=== PATIENT | female | born 1935 | race Caucasian/White ===

== ENCOUNTER 2020-12-23 11:00 | Outpatient (RCR) | payer MEDICARE, SELFPAY ==
--- NOTE | 2020-11-11 11:58 | ECG_ITS ---
Measurements Intervals [place] Rate: 65 P: HI: 0 QRS: 88 QRSD: 202 T: -6 QT: 505 QTc: 528 Interpretive Statements ATRIAL FLUTTER/TACHYCARDIA FREQUENT VENTRICULAR PREMATURE COMPLEXES RIGHT BUNDLE BRANCH BLOCK BASELINE ARTIFACT- II, III, AVR, AVL, AVF, V4 ABNORMAL ECG Electronically Signed On 11-11-2020 15:50:19 CDT by Tavares Quintanilla D.O.
== END 2020-12-23 15:20 | disposition home or self-care (01) ==
PROVIDERS: PCP Internal Medicine
DX: J45.909 Unspecified asthma, uncomplicated (principal)
CPT/HCPCS: 93005; 97150; G0239; G0424

== ENCOUNTER 2021-01-18 10:55 | Outpatient (RCR) | payer MEDICARE, SELFPAY ==
--- NOTE | 2021-01-20 18:48 | PTOPEVAL ---
Thank you for referring Lisa Javier to [facility].? The patient is scheduled to be seen for therapy? ____x/week for ___ weeks. Please review, sign, date and return this plan of care BINH. I agree with and certify that the following plan of care is medically necessary. Referring Physician Date Admitting Provider: Attending Provider: Osbaldo Alvarez, Referring Provider: *PT Outpatient Evaluation Start: 01/18/21 11:04 Freq: Status: Active Protocol: Document 01/18/21 11:09 [facility] (Rec: 01/18/21 12:15 [facility] [id number]) Therapy Assessment Status Assessment Status Assessment Status Evaluation Evaluation Information Problem Diagnosis lumbar spine OA Onset 11/26/20 Additional Evaluation Detail oswestry = 44% Subjective Information patient reports she is having Query Text:As Reported By Patient/ lower back pain between her Family two SI joints. she reports she has been having pain for a long long time. she reports she has had pain for more than 10 years. she reports the pain comes and goes. she reports she has increased pain with standing, and lifting/ pushing heavy objects. she reports she supplements with tylenol as needed for pain. she reports she has had no xrays. she reports her typical daily activities involve self care, reading, watching TV, and taking care of her pets. she reports she was just recently in cardiac rehab for fungus in her lungs. Prior Level of Function Comments Additional Prior Level of Function she reports she has noticed Comments decreased performance with home care activities and community activities for 4-5 years. she reports it has been progressively worsening for the past year. Pain Assessment Timing of Pain Assessment Timing of Pain Assessment Assessment Pain Scale Pain Scale Used Numeric (1 - 10) Self Report Pain Assessment Lower Back Reported Pain Level 6 Greatest Pain Intensity 8 Pain Score Pain Score 6: Self Report Interventions Used Interventions Used By Clinicians Activity or ADL's,Education,
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
--- NOTE | 2021-03-22 16:06 | PTOPEVAL ---
Thank you for referring Lisa Javier to [facility].? The patient is scheduled to be seen for therapy? ____x/week for ___ weeks. Please review, sign, date and return this plan of care BINH. I agree with and certify that the following plan of care is medically necessary. Referring Physician Date Admitting Provider: Attending Provider: Osbaldo Alvarez, Referring Provider: *PT Outpatient Evaluation Start: 01/18/21 11:04 Freq: Status: Active Protocol: Document 03/22/21 15:19 [facility] (Rec: 03/22/21 16:05 [facility] [id number]) Therapy Assessment Status Assessment Status Assessment Status Progress Outpatient Past Medical History Cardiovascular History Hx Atrial Fibrillation Yes Hx Hypercholesterolemia Yes Hx Mitral Valve Prolapse Yes Hx Other Cardiac Disorders Yes: WATCHMAN IMPLANT Respiratory History Hx Asthma Yes Gastrointestinal History Hx Appendectomy Yes Hx Colitis Yes Hx Diverticulitis Yes Hx Gastrointestinal Bleed Yes Hx Irritable Bowel Yes Hx Ulcer Yes Genitourinary History Hx Urinary Tract Infection Yes Musculoskeletal History Hx Arthritis Yes Hx Back Pain Yes Hx Fractures Yes: RIGHT FOOT Hematological History Hx Anemia Yes Hx Blood Transfusions Yes HEENT History Hx Tonsillectomy Yes Hx Sinus Problems Yes Hx Other HEENT Disorders Yes: ALLERGIES Other History Hx Cancer Yes: RIGHT BREAST-MASTECTOMY Evaluation Information Problem Diagnosis lumbar spine OA Onset 11/26/20 Pain Assessment Timing of Pain Assessment Timing of Pain Assessment Assessment Pain Scale Pain Scale Used Numeric (1 - 10) Self Report Pain Assessment Chest Reported Pain Level 0 Upper Back Reported Pain Level 3 Lower Back Reported Pain Level 3 Pain Score Pain Score 0,3,3: Self Report Interventions Used Interventions Used By Clinicians Activity or ADL's,Electrical Stimulation,Exercise,Heat, Manual Therapy Techniques Cervical and Lumbar ROM Lumbar ROM Lumbar Flexion Active Ankle,Floor Query Text:Hands to: Lumbar Extension (0-40) 20 Query Text:Active in Degrees Lumbar Lateral Flexion Right (0-40) 30 Query Text:Active in Degrees Lumbar Lateral Flexion Left (0-40) 30 Query Text:Active in Degrees Cervical and Lumbar Muscle Testing Lumbar Strength Upper Abdominal Strength 3+Fair+ Lower Abdominal Strengt
--- NOTE | 2021-03-22 16:10 | PTOPEVAL ---
Thank you for referring Lisa Javier to [facility].? The patient is scheduled to be seen for therapy? ____x/week for ___ weeks. Please review, sign, date and return this plan of care BINH. I agree with and certify that the following plan of care is medically necessary. Referring Physician Date Admitting Provider: Attending Provider: Osbaldo Alvarez, Referring Provider: *PT Outpatient Evaluation Start: 01/18/21 11:04 Freq: Status: Active Protocol: Document 03/22/21 15:19 [facility] (Rec: 03/22/21 16:05 [facility] [id number]) Therapy Assessment Status Assessment Status Assessment Status Progress Outpatient Past Medical History Cardiovascular History Hx Atrial Fibrillation Yes Hx Hypercholesterolemia Yes Hx Mitral Valve Prolapse Yes Hx Other Cardiac Disorders Yes: WATCHMAN IMPLANT Respiratory History Hx Asthma Yes Gastrointestinal History Hx Appendectomy Yes Hx Colitis Yes Hx Diverticulitis Yes Hx Gastrointestinal Bleed Yes Hx Irritable Bowel Yes Hx Ulcer Yes Genitourinary History Hx Urinary Tract Infection Yes Musculoskeletal History Hx Arthritis Yes Hx Back Pain Yes Hx Fractures Yes: RIGHT FOOT Hematological History Hx Anemia Yes Hx Blood Transfusions Yes HEENT History Hx Tonsillectomy Yes Hx Sinus Problems Yes Hx Other HEENT Disorders Yes: ALLERGIES Other History Hx Cancer Yes: RIGHT BREAST-MASTECTOMY Evaluation Information Problem Diagnosis lumbar spine OA Onset 11/26/20 Pain Assessment Timing of Pain Assessment Timing of Pain Assessment Assessment Pain Scale Pain Scale Used Numeric (1 - 10) Self Report Pain Assessment Chest Reported Pain Level 0 Upper Back Reported Pain Level 0 Lower Back Reported Pain Level 3 Pain Score Pain Score 0,0,3: Self Report Interventions Used Interventions Used By Clinicians Activity or ADL's,Electrical Stimulation,Exercise,Heat, Manual Therapy Techniques Cervical and Lumbar ROM Lumbar ROM Lumbar Flexion Active Ankle,Floor Query Text:Hands to: Lumbar Extension (0-40) 20 Query Text:Active in Degrees Lumbar Lateral Flexion Right (0-40) 30 Query Text:Active in Degrees Lumbar Lateral Flexion Left (0-40) 30 Query Text:Active in Degrees Cervical and Lumbar Muscle Testing Lumbar Strength Upper Abdominal Strength 3+Fair+ Lower Abdominal Strengt
--- NOTE | 2021-04-05 16:14 | PTOPEVAL ---
Thank you for referring Lisa Javier to [facility].? The patient is scheduled to be seen for therapy? ____x/week for ___ weeks. Please review, sign, date and return this plan of care BINH. I agree with and certify that the following plan of care is medically necessary. Referring Physician Date Admitting Provider: Attending Provider: Osbaldo Alvarez, Referring Provider: *PT Outpatient Evaluation Start: 01/18/21 11:04 Freq: Status: Active Protocol: Document 04/05/21 14:55 [facility] (Rec: 04/05/21 16:11 [facility] [id number]) Therapy Assessment Status Assessment Status Assessment Status Discharge Outpatient Past Medical History Cardiovascular History Hx Atrial Fibrillation Yes Hx Hypercholesterolemia Yes Hx Mitral Valve Prolapse Yes Hx Other Cardiac Disorders Yes: WATCHMAN IMPLANT Respiratory History Hx Asthma Yes Gastrointestinal History Hx Appendectomy Yes Hx Colitis Yes Hx Diverticulitis Yes Hx Gastrointestinal Bleed Yes Hx Irritable Bowel Yes Hx Ulcer Yes Genitourinary History Hx Urinary Tract Infection Yes Musculoskeletal History Hx Arthritis Yes Hx Back Pain Yes Hx Fractures Yes: RIGHT FOOT Hematological History Hx Anemia Yes Hx Blood Transfusions Yes HEENT History Hx Tonsillectomy Yes Hx Sinus Problems Yes Hx Other HEENT Disorders Yes: ALLERGIES Other History Hx Cancer Yes: RIGHT BREAST-MASTECTOMY Evaluation Information Problem Diagnosis lumbar spine OA Onset 11/26/20 Additional Evaluation Detail oswestry = 40% functionally declined Subjective Information patient reports she has had Query Text:As Reported By Patient/ soreness in the back still Family with increased standing and walking activities. patient reports she is compliant with her exercises at home, but reports she is unable to get into a walking program due to having a rough gravel road at home. patient reports she is going to get a membership at [employer] and a recummbent bike for home. Pain Assessment Timing of Pain Assessment Timing of Pain Assessment Assessment Pain Scale Pain Scale Used Numeric (1 - 10) Self Report Pain Assessment Lower Ba
== END 2021-04-05 16:22 | disposition home or self-care (01) ==
LOC: CHSPT 10:55
PROVIDERS: Visit Provider Internal Medicine
DX: R06.00 Dyspnea, unspecified (principal); M47.896 Other spondylosis, lumbar region; M54.9 Dorsalgia, unspecified; S20.219S Contusion of unspecified front wall of thorax, sequela
CPT/HCPCS: 97014; 97110; 97112; 97140; 97161; G0283

== ENCOUNTER 2021-02-01 17:43 | Emergency (ER) | payer MEDICARE, SELFPAY ==
[2021-02-01 17:56] VITALS: BP 143/58; PULSE 98; RESP 18; TEMP 36.4; O2SAT 97
--- NOTE | 2021-02-01 18:10 | ED.SKABFB ---
HPI - Skin/Abscess/Foreign Bdy General Chief complaint: Animal Bite Stated complaint: cat bite Time Seen by Provider: 02/01/21 18:10 Source: patient and RN notes reviewed History of Present Illness HPI narrative: Patient is an 85-year-old female who presents the urgent care with complaints of a cat bite to the left hand. Patient states that happened either Sunday or Sunday. Patient states that was her cat that bit her and he is up-to-date on shots. Patient states that she takes 2 g of amoxicillin every time she visits the dentist and she did take that medication this morning. Patient denies of any fever, chills, nausea, vomiting. No other acute complaints. No acute distress noted. Patient aware of the plan of care. Some parts of this dictation were generated by voice recognition software and may contain typographical and/or grammatical inaccuracies. Related Data Home Medications Medication Instructions Recorded Confirmed dicyclomine 10 mg PO TID 02/01/21 02/01/21 diltiazem HCl 240 mg PO DAILY 02/01/21 02/01/21 flecainide 100 mg PO BID 02/01/21 02/01/21 pravastatin 20 mg PO DAILY 02/01/21 02/01/21 Allergies Allergy/AdvReac Type Severity Reaction Status Date / Time castro Allergy Mild Unknown Verified 02/01/21 18:13 soy Allergy Mild Unknown Verified 02/01/21 18:13 wheat Allergy Mild Unknown Verified 02/01/21 18:13 Digitalis Glycosides Allergy Unknown Unknown Verified 02/01/21 18:13 shellfish derived Allergy Unknown Unknown Verified 02/01/21 18:13 simvastatin Allergy Unknown Unknown Verified 02/01/21 18:13 Review of Systems Review of Systems: CONSTITUTIONAL: Denies fever, chills, or sweats. EYES: Denies visual changes, redness, or discharge. ENT: Denies rhinorrhea, congestion, sore throat, or otalgia. CARDIOVASCULAR: Denies chest pain, palpitations, or edema. RESPIRATORY: Denies cough or dyspnea. GASTROINTESTINAL: Denies abdominal pain, nausea, vomiting, or diarrhea. GENITOURINARY: Denies dysuria or hematuria. SKIN: Reports of a cat bite to the left hand MUSCULOSKELETAL: Denies back pain, joint pain, or myalgia. NEUROLOGIC: Denies headache, numbness, or weakness. All other systems reviewed are negative, except as documented in HPI. PMFSH Comments At the time of my signature, I reviewed and agree with the nursing past medical, surgical, social, and family history. There is no relevant family history pertinent to the patient complaint. Exam Narrative: GENERAL: This is a well-nourished, well-developed patient, in no apparent distress. HEAD: normocephalic, atraumatic. EYES: PERRL. Sclera clear/white. Vision is grossly intact. EARS: External ears normal NOSE: External nose normal with no obvious nasal discharge, nares without redness, no rhinorrhea. THROAT: Mucous membranes moist NECK: Neck supple, non-tender without lymphadenopathy, masses or thyromegaly. CARDIOVASCULAR: Regular rate and rhythm RESPIRATORY: Clear to auscultation. Breath sounds equal bilaterally. No wheezes, rales, or rhonchi. SKIN: 3 x 2 cm area of erythema noted to the dorsal radial aspect of the left hand with small scabbed wound NEURO: awake, alert, and oriented to person, place and time. There were no obvious focal neurologic abnormalities. EXTREMITIES: No clubbing, cyanosis, or edema. Course Vital Signs Vital signs: Vital Signs Temperature 97.5 F L 02/01/21 17:56 Pulse Rate 98 02/01/21 17:56 Respiratory Rate 18 02/01/21 17:56 Blood Pressure 143/58 H 02/01/21 17:56 Pulse Oximetry 97 02/01/21 17:56 Temperature 97.5 F L 02/01/21 17:56 Pulse Rate 98 02/01/21 17:56 Respiratory Rate 18 02/01/21 17:56 Blood Pressure 143/58 H 02/01/21 17:56 Pulse Oximetry 97 02/01/21 17:56 Reviewed-patient is informed that they may have pre-hypertension or hypertension based on a blood pressure reading in the department. I recommend the patient call the primary care provider listed on their discharge instructions or a physician of th
== END 2021-02-01 18:18 | disposition home or self-care (01) ==
PROVIDERS: Emergency Provider Nurse Practitioner Family; PCP Internal Medicine
DX: S61.452A Open bite of left hand, initial encounter (principal); W55.01XA Bitten by cat, initial encounter; I48.91 Unspecified atrial fibrillation; E78.00 Pure hypercholesterolemia, unspecified; I34.9 Nonrheumatic mitral valve disorder, unspecified; J45.909 Unspecified asthma, uncomplicated; M19.90 Unspecified osteoarthritis, unspecified site; Z90.11 Acquired absence of right breast and nipple; Z85.3 Personal history of malignant neoplasm of breast
CPT/HCPCS: 99213; G0463

== ENCOUNTER 2022-02-27 10:28 | Emergency (ER) | payer MEDICARE, SELFPAY ==
--- NOTE | 2022-02-27 10:39 | ED.EAR ---
HPI - Ear Problem General Chief complaint: Ear Stated complaint: Foreign Body In Left Ear Time Seen by Provider: 02/27/22 10:40 Source: patient and RN notes reviewed History of Present Illness HPI Narrative: Patient is an 86-year-old female who presents the urgent care with complaints of part of her hearing aid stuck in her left ear. Patient states has been there since yesterday. Patient has used a rinse and tweezers without any success. Denies of any pain. No other acute complaints. No acute distress noted. Patient aware of the plan of care. Some parts of this dictation were generated by voice recognition software and may contain typographical and/or grammatical inaccuracies. Related Data Home Medications Medication Instructions Recorded Confirmed dicyclomine 10 mg capsule 10 mg PO TID 02/01/21 02/27/22 diltiazem HCl 240 mg 240 mg PO DAILY 02/01/21 02/27/22 capsule,extended release 24 hr flecainide 100 mg tablet 100 mg PO BID 02/01/21 02/27/22 fluticasone furoate 100 1 inh inhalation DAILY 02/01/21 02/27/22 mcg-vilanterol 25 mcg/dose inhalation powder (Breo Ellipta) metoprolol succinate 50 mg 50 mg PO DAILY 02/01/21 02/27/22 tablet,extended release 24 hr montelukast 10 mg tablet 10 mg PO DAILY 02/01/21 02/27/22 omeprazole 40 mg capsule,delayed 40 mg PO DAILY 02/01/21 02/27/22 release pravastatin 40 mg tablet 20 mg PO DAILY 02/01/21 02/27/22 Allergies Allergy/AdvReac Type Severity Reaction Status Date / Time castro Allergy Mild Unknown Verified 02/27/22 10:54 soy Allergy Mild Unknown Verified 02/27/22 10:54 wheat Allergy Mild Unknown Verified 02/27/22 10:54 Digitalis Glycosides Allergy Unknown Unknown Verified 02/27/22 10:54 shellfish derived Allergy Unknown Unknown Verified 02/27/22 10:54 simvastatin Allergy Unknown Unknown Verified 02/27/22 10:54 Review of Systems Review of Systems: CONSTITUTIONAL: Denies fever, chills, or sweats. EYES: Denies visual changes, redness, or discharge. ENT: Denies rhinorrhea, congestion, sore throat, or otalgia. Reports a foreign body to the left ear CARDIOVASCULAR: Denies chest pain, palpitations, or edema. RESPIRATORY: Denies cough or dyspnea. GASTROINTESTINAL: Denies abdominal pain, nausea, vomiting, or diarrhea. GENITOURINARY: Denies dysuria or hematuria. SKIN: Denies rash or itching. MUSCULOSKELETAL: Denies back pain, joint pain, or myalgia. NEUROLOGIC: Denies headache, numbness, or weakness. All other systems reviewed are negative, except as documented in HPI. PMFSH Comments At the time of my signature, I reviewed and agree with the nursing past medical, surgical, social, and family history. There is no relevant family history pertinent to the patient complaint. Exam Narrative: GENERAL: This is a well-nourished, well-developed patient, in no apparent distress. HEAD: normocephalic, atraumatic. EYES: PERRL. Sclera clear/white. Vision is grossly intact. EARS: External ears normal, auditory canals clear and without drainage, right TM normal without perforation. Unable to visualize left TM due to foreign body. Hearing grossly intact. NOSE: External nose normal with no obvious nasal discharge, nares without redness, no rhinorrhea. THROAT: Mucous membranes moist NECK: Neck supple SKIN: warm, intact with no suspicious lesions or rash, good texture and turgor. NEURO: awake, alert, and oriented to person, place and time. There were no obvious focal neurologic abnormalities. EXTREMITIES: No clubbing, cyanosis, or edema. Course Course Level of Care: Express Care Visit Vital Signs Vital signs: Vital Signs Temperature 97.3 F L 02/27/22 10:42 Pulse Rate 63 02/27/22 10:42 Respiratory Rate 16 02/27/22 10:42 Blood Pressure 136/54 L 02/27/22 10:42 Pulse Oximetry 97 02/27/22 10:42 Oxygen Delivery Room Air 02/27/22 10:42 Temperature 97.3 F L 02/27/22 10:55 Pulse Rate 63 02/27/22 10:55 Respiratory Rate 16 02/27/22 10:55 Blood Pressure 136/54
[2022-02-27 10:42] VITALS: BP 136/54; PULSE 63; RESP 16; TEMP 36.3; O2SAT 97
[2022-02-27 10:55] VITALS: BP 136/54; PULSE 63; RESP 16; TEMP 36.3; O2SAT 97
== END 2022-02-27 11:15 | disposition home or self-care (01) ==
PROVIDERS: Emergency Provider Nurse Practitioner Family; PCP Internal Medicine
DX: T16.2XXA Foreign body in left ear, initial encounter (principal); X58.XXXA Exposure to other specified factors, initial encounter; I48.91 Unspecified atrial fibrillation; E78.00 Pure hypercholesterolemia, unspecified; I34.1 Nonrheumatic mitral (valve) prolapse; J45.909 Unspecified asthma, uncomplicated; M19.90 Unspecified osteoarthritis, unspecified site; Z85.3 Personal history of malignant neoplasm of breast; Z90.11 Acquired absence of right breast and nipple
CPT/HCPCS: 69200; 99212; G0463

== ENCOUNTER 2022-08-21 15:50 | Emergency (ER) | payer MEDICARE, SELFPAY ==
--- NOTE | ~2022-08-21 | XR_ITS ---
EXAMINATION: XR pelvis 1-2V, XR hip RT min 2V DATE: 08/21/2022 17:05 INDICATION: Fall TECHNIQUE: 1. An anteroposterior view of the pelvis was obtained. 2. Anteroposterior and frog-leg lateral views of the left hip were obtained. COMPARISON: None. FINDINGS: Caudal aspect of the thoracolumbar levoscoliosis is evident on the radiographs of the pelvis. Normal alignment at the bilateral hips. No fracture. Mild osteoarthritis at the bilateral hips. Mild to mode rate osteoarthritis at the bilateral sacroiliac joints. Moderate to severe lower lumbar spondylosis. Osteitis pubis. Surgical clips in the left lower quadrant. IMPRESSION: 1. Degenerative skeletal changes in the lower lumbar spine and pelvis as detailed above. No acute oss eous abnormality. Reviewed, dictated and finalized at location B. IMPRESSION: 1. Degenerative skeletal changes in the lower lumbar spine and pelvis as detail ed above. No acute osseous abnormality.
--- NOTE | ~2022-08-21 | XR_ITS ---
EXAMINATION: XR cervical spine 4-5V DATE: 08/21/2022 17:05 INDICATION: Neck injury. Fall. TECHNIQUE: 6 views of cervical spine were obtained. COMPARISON: Cervical spine CT 07/17/2017 FINDINGS: There is 2 mm anterolisthesis of C3 on C4, 2 mm retrolisthesis of C5 on C6 and C6 on C7, an d 2 mm anterolisthesis of C7 on T1. Vertebral body heights are normal. There is mildly decreased disc height at C3-C4, moderately decreased disc height at C4-C5, and severely decreased disc height at C5 -C6 and C6-C7. There is multilevel severe uncovertebral joint and facet joint osteoarthritis. On the right, there is mild neural foraminal stenosis at multiple levels. On the left, there is moderate to severe neural foraminal stenosis from C4-C5 through C6-C7. There is mild central canal stenosis at C4 -C5, C5-C6, and C6-C7. No prevertebral soft tissue swelling. IMPRESSION: 1. Severe cervical spondylosis. Reviewed, dictated and finalized at location A.
--- NOTE | ~2022-08-21 | XR_ITS ---
EXAMINATION: XR hip LT min 2V DATE: 08/21/2022 17:05 INDICATION: Left hip injury. Fall. TECHNIQUE: 2 views of left hip were obtained. COMPARISON: None. FINDINGS: There is lumbar levoscoliosis and severe spondylosis. No fracture. There is mild left hip o steoarthritis. Osteitis pubis is noted. Surgical clips overlie left abdomen. IMPRESSION: 1. Mild left hip osteoarthritis. Reviewed, dictated and finalized at location A.
--- NOTE | ~2022-08-21 | XR_ITS ---
EXAMINATION: XR lumbar spine min 4V DATE: 08/21/2022 17:05 INDICATION: Fall TECHNIQUE: Anteroposterior, lateral, and bilateral oblique views of the lumbar spine, and cone-down l ateral view of the lumbosacral junction were obtained. COMPARISON: CT abdomen pelvis dated 05/18/2017 FINDINGS: 30 degree thoracolumbar levoscoliosis measured between T11 and L3. 7 mm anterolisthesis L4 on L5, 3 m m anterolisthesis L3 on L4. Relatively recent-appearing T11 compression fracture with 20% anterior ve rtebral body height loss and sharply angulated cortex along the anterior wall. Lumbar vertebral body heights are normal. Severe disc height loss at T8-T9, severe right-sided predominant disc height loss at T12-L1 and L1-L2. Moderate disc height loss at T6-T7 and T7-T8 and moderate right-sided predomina nt disc height loss at L2-L3. Mild disc height loss at remaining lumbar lower thoracic levels. No par s interarticularis defects. Moderate to severe facet osteoarthritis in the mid to lower lumbar spine. Mild left and moderate right sacroiliac osteoarthritis. Cardiomegaly. Postoperative change of the he art. IMPRESSION: 1. Recent-appearing T11 compression fracture with 20% anterior vertebral body height loss. 2. 30 degrees thoracolumbar levoscoliosis with severe spondylosis. Reviewed, dictated and finalized at location B. IMPRESSION: 1. Recent-appearing T11 compression fracture with 20% anterior vertebral body h eight loss. 2. 30 degrees thoracolumbar levoscoliosis with severe spondylosis.
--- NOTE | 2022-08-21 15:59 | ED.GENADULT ---
HPI - General Adult General Chief complaint: Back Pain/Injury Stated complaint: fall, head/lower back injury Source: patient, family and RN notes reviewed History of Present Illness HPI narrative: 87 yo F presents to urgent care with friend at side. Pt states she is having lower back pain that radiates around to both sides. Pt states she is having right groin pain as well. Pt states she fell backwards on Sunday morning around 02:30 am when she was having diarrhea and attempting to back up to toilet when she fell backwards, hitting the back of her head on the shower frame. Pt states she fell onto her buttocks. Pt denies any LOC. Denies any BECERRA, visual disturbance, numbness, tingling, vomiting, neck pain, chest pain, or SOB. Pt has been taking Tylenol at home for her lower back pain with moderate relief. Pt states her diarrhea was just that night and has been fine ever since. Pt denies any other recent illness. Related Data Home Medications Medication Instructions Recorded Confirmed dicyclomine 10 mg capsule 10 mg PO TID 02/01/21 08/21/22 diltiazem HCl 240 mg 240 mg PO DAILY 02/01/21 08/21/22 capsule,extended release 24 hr flecainide 100 mg tablet 100 mg PO BID 02/01/21 08/21/22 fluticasone furoate 100 1 inh inhalation DAILY 02/01/21 08/21/22 mcg-vilanterol 25 mcg/dose inhalation powder (Breo Ellipta) metoprolol succinate 50 mg 50 mg PO DAILY 02/01/21 08/21/22 tablet,extended release 24 hr montelukast 10 mg tablet 10 mg PO DAILY 02/01/21 08/21/22 omeprazole 40 mg capsule,delayed 40 mg PO DAILY 02/01/21 08/21/22 release pravastatin 40 mg tablet 20 mg PO DAILY 02/01/21 08/21/22 prochlorperazine maleate 10 mg 10 mg PO Q8H PRN Diarrhea 08/21/22 08/21/22 tablet (Compazine) Allergies Allergy/AdvReac Type Severity Reaction Status Date / Time castro Allergy Mild Unknown Verified 08/21/22 16:04 soy Allergy Mild Unknown Verified 08/21/22 16:04 wheat Allergy Mild Unknown Verified 08/21/22 16:04 Digitalis Glycosides Allergy Unknown Unknown Verified 08/21/22 16:04 shellfish derived Allergy Unknown Unknown Verified 08/21/22 16:04 simvastatin Allergy Unknown Unknown Verified 08/21/22 16:04 Review of Systems Review of Systems: CONSTITUTIONAL: Denies fever, chills, or sweats. EYES: Denies visual changes, redness, or discharge. ENT: Denies otalgia and sore throat CARDIOVASCULAR: Denies chest pain, palpitations, or edema. RESPIRATORY: Denies cough or dyspnea. GASTROINTESTINAL: Denies abdominal pain, nausea, vomiting, or diarrhea. GENITOURINARY: Denies dysuria or hematuria. SKIN: Denies rash or itching. MUSCULOSKELETAL: lower back pain bilaterally NEUROLOGIC: Denies headache, numbness, or weakness. PMFSH Comments At the time of my signature, I reviewed and agree with the nursing past medical, surgical, social, and family history. There is no relevant family history pertinent to the patient complaint. Exam Narrative: GENERAL: This is a well-nourished, well-developed patient, in no apparent distress. HEAD: normocephalic, atraumatic. EYES: PERRL. Sclera clear/white. Vision is grossly intact. EARS: External ears normal, auditory canals clear and without drainage, TMs normal without perforation. Hearing grossly intact. NOSE: External nose normal with no obvious nasal discharge, nares without redness, no rhinorrhea. THROAT: Mucous membranes moist, posterior pharynx clear. NECK: Neck supple, non-tender without lymphadenopathy, masses or thyromegaly. CARDIOVASCULAR: Regular rate and rhythm without murmurs, gallops, or rubs. RESPIRATORY: Clear to auscultation. Breath sounds equal bilaterally. No wheezes, rales, or rhonchi. GASTROINTESTINAL: Abdomen soft, non-tender, nondistended. Bowel sounds are active. No hepato-splenomegaly, or palpable masses. No guarding. SKIN: warm, intact with no suspicious lesions or rash, good texture and turgor. NEURO: awake, alert, and oriented to person, place and time. There were no obvious focal vira
[2022-08-21 16:10] VITALS: BP 156/81; PULSE 83; RESP 16; TEMP 36.5; O2SAT 96
== END 2022-08-21 17:58 | disposition home or self-care (01) ==
PROVIDERS: Emergency Provider Nurse Practitioner Family
DX: S22.080A Wedge compression fracture of T11-T12 vertebra, initial encounter for closed fracture (principal); M16.0 Bilateral primary osteoarthritis of hip; I48.91 Unspecified atrial fibrillation; E78.00 Pure hypercholesterolemia, unspecified; I34.1 Nonrheumatic mitral (valve) prolapse; J45.909 Unspecified asthma, uncomplicated; M19.90 Unspecified osteoarthritis, unspecified site; Z85.3 Personal history of malignant neoplasm of breast; Z90.11 Acquired absence of right breast and nipple
CPT/HCPCS: 72050; 72110; 72170; 73502; 99214; G0463

== ENCOUNTER 2023-08-08 19:22 | Emergency (ER) | payer MEDICARE, SELFPAY ==
--- NOTE | ~2023-08-08 | XR_ITS ---
EXAMINATION: XR chest 2V DATE: 08/08/2023 20:35 INDICATION: Fall, dizziness TECHNIQUE: AP and lateral views of the chest are obtained. COMPARISON: 03/06/2018 FINDINGS: Cardiomegaly is noted. There are minimal airspace opacities of the lung bases. No pleural e ffusion or pneumothorax. There are surgical clips in the right breast. There is severe thoracic spond ylosis. Thoracic and lumbar compression fractures are noted. IMPRESSION: 1. Bibasilar airspace opacities, consistent with atelectasis versus pneumonia. 2. Cardiomegaly. Reviewed, dictated and finalized at location F. [employer]
--- NOTE | ~2023-08-08 | CT_ITS ---
EXAMINATION: CT facial & cervical spine wo DATE: 08/08/2023 20:29 INDICATION: Head injury TECHNIQUE: Computed tomography (CT) of the maxillofacial region and cervical spine was performed with out intravenous contrast. The dose-length product (DLP) was 129.29 mGy-cm. Automated exposure control and iterative reconstruction technique were employed. COMPARISON: None FINDINGS: MAXILLOFACIAL CT: No facial fracture is identified. The globes and orbits are normal. Changes in the globes are likely from ocular lens surgery. There is minimal opacification posteriorly in the right ethmoidal air cells . CERVICAL SPINE CT: There are 2 mm of anterolisthesis of C7 on T1. There is severe loss of intervertebral disc space heig ht at C4-5, C5-6, and C6-7. There is moderate loss of intervertebral disc space height at C3-4. The o dontoid process is intact. There is severe multilevel facet and uncovertebral joint osteoarthritis. IMPRESSION: 1. No evidence of facial bone fracture. 2. Severe cervical spondylosis without acute findings. Reviewed, dictated and finalized at location F. 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
--- NOTE | ~2023-08-08 | CT_ITS ---
EXAMINATION: CT brain wo con INDICATION: Head injury COMPARISON: 07/17/2017 TECHNIQUE: Standard unenhanced head CT. The dose-length product (DLP) was 605.33 mGy-cm. The mA was a djusted according to patient size. Iterative reconstruction technique was employed. FINDINGS: No acute intraparenchymal hemorrhage. No evidence of mass lesion. No evidence of acute infa rction. There is mild periventricular and subcortical hypodensity probably related to small vessel is chemic disease. There is mild prominence of the sulci and ventricles related to cerebral atrophy. Int racranial calcified cerebral atherosclerosis is noted. No extra-axial collections. No mass effect or midline shift. Changes in the globes are likely from ocular lens surgery. The visualized sinuses and mastoid air cells are well aerated. IMPRESSION: 1. No acute intracranial abnormality. 2. Age related findings. Reviewed, dictated and finalized at location F. 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
[2023-08-08 19:39] VITALS: BP 174/78; PULSE 61; RESP 14; TEMP 36.5; O2SAT 96
--- NOTE | 2023-08-08 19:55 | ECG_ITS ---
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
--- NOTE | 2023-08-08 19:57 | ED.FALL ---
HPI - Fall General Chief Complaint: Fall Stated Complaint: fall Time Seen by Provider: 08/08/23 19:45 Focused HPI: This is a 87-year-old female that presents to the emergency department after a head injury today. Reports she was leaning forward in the kitchen to pick something up and lost her balance and fell forward. She hit her head. She did not lose consciousness. Reports a laceration to her forehead. Unsure of last tetanus vaccination. Reports she has been having some trouble with vertigo the last couple of weeks. No current dizziness. She does report she has struggled with this in the past. Denies vision changes, vomiting, numbness, weakness. GENERAL: Well-appearing, well-nourished, and in no acute distress. HEAD: Normocephalic. 2cm linear laceration into subcutaneous tissue to the forehead CHEST: Clear to auscultation. ?No respiratory distress. HEART: Regular rate and rhythm.? NEURO: ?Alert and oriented x3. Patient screened in triage and initial orders placed.? ?Additional care and disposition to be based upon?diagnostic testing and treatment. Related Data Home Medications Medication Instructions Recorded Confirmed dicyclomine 10 mg capsule 10 mg PO TID 02/01/21 08/21/22 diltiazem HCl 240 mg 240 mg PO DAILY 02/01/21 08/21/22 capsule,extended release 24 hr flecainide 100 mg tablet 100 mg PO BID 02/01/21 08/21/22 fluticasone furoate 100 1 inh inhalation DAILY 02/01/21 08/21/22 mcg-vilanterol 25 mcg/dose inhalation powder (Breo Ellipta) metoprolol succinate 50 mg 50 mg PO DAILY 02/01/21 08/21/22 tablet,extended release 24 hr montelukast 10 mg tablet 10 mg PO DAILY 02/01/21 08/21/22 omeprazole 40 mg capsule,delayed 40 mg PO DAILY 02/01/21 08/21/22 release pravastatin 40 mg tablet 20 mg PO DAILY 02/01/21 08/21/22 prochlorperazine maleate 10 mg 10 mg PO Q8H PRN Diarrhea 08/21/22 08/21/22 tablet (Compazine) Allergies Allergy/AdvReac Type Severity Reaction Status Date / Time castro Allergy Mild Unknown Verified 08/21/22 16:04 soy Allergy Mild Unknown Verified 08/21/22 16:04 wheat Allergy Mild Unknown Verified 08/21/22 16:04 Digitalis Glycosides Allergy Unknown Unknown Verified 08/21/22 16:04 shellfish derived Allergy Unknown Unknown Verified 08/21/22 16:04 simvastatin Allergy Unknown Unknown Verified 08/21/22 16:04 Review of Systems Review of Systems: CONSTITUTIONAL: Denies fever EYES: Denies visual changes CARDIOVASCULAR: Denies chest pain RESPIRATORY: Denies dyspnea. GASTROINTESTINAL: Denies vomiting GENITOURINARY: Denies dysuria NEUROLOGIC: Denies numbness, or weakness. All systems reviewed & are unremarkable except as noted in HPI and below PMFSH Past Medical History Medical History (Updated 08/08/23 @ 23:19 by Merle Duran PA-C) History of atrial fibrillation History of gastroesophageal reflux (GERD) History of hyperlipidemia Social History Social History (Updated 08/08/23 @ 23:13 by Merle Duran PA-C) Substance use: never Exam Narrative: GENERAL: Elderly, well-nourished, and in no acute distress. HEAD: Normocephalic. 2cm linear laceration to the forehead with surrounding ecchymosis EYES: PERRLA and EOMI. ENT: Nares clear, no rhinorrhea or epistaxis. Mucous membranes moist. Oropharynx without tonsillar hypertrophy exudate or other lesions. Bilateral TMs pearly vee non-bulging NECK: Supple. No adenopathy or masses. CHEST: Clear to auscultation. No respiratory distress. No wheezes rales or rhonchi HEART: Regular rate and rhythm. No murmur heard. Normal peripheral pulses. BACK: No midline spinal tenderness EXTREMITIES: Normal range of motion. No edema or obvious deformity. SKIN: Warm, dry, no rash. NEURO: No focal deficits. Alert and oriented x3. Cranial nerves 2-12 grossly intact PSYCH: Normal mood and affect Course Vital Signs Vital signs: Vital Signs Temperature 97.7 F 08/08/23 19:39 Pulse Rate 61 08/08/23 19:39 Respiratory Rate 14
[2023-08-08 20:22] LABS: Basophils Percent Auto 0.5 % (0.2-1.2); Eosinophils Absolute Auto 0.2 K/mm3 (0-0.3); Eosinophils Percent Auto 2.9 % (0-4.4); Hematocrit 39.5 % (37.0-47.0); Hemoglobin 12.4 g/dL (12.0-15.0); Immature Granulocyte Absolute 0.03 K/mm3 (0.00-0.031); Immature Granulocyte Percent A 0.4 % (0-0.5); Lymphocytes Absolute Auto 1.28 K/mm3 (0.9-3.2); Lymphocytes Percent Auto 16.2 % (18.3-44.2); Mean Corpuscular HGB Conc 31.4 g/dl (32-36); Mean Corpuscular Hemoglobin 27.9 pg (26-34); Mean Corpuscular Volume 88.8 fl (80-100); Monocytes Percent Auto 12.6 % (2.6-8.5); Neutrophils Absolute Auto 5.3 K/mm3 (1.3-6.7); Neutrophils Percent Auto 67.4 % (45.5-73.1); Platelet Count Result 237 k/mm3 (150-375); Red Blood Count 4.45 M/mm3 (4.2-5.4); Red Cell Distribution Width 16.4 % (11.5-14.5); White Blood Count 7.9 K/mm3 (4.5-10.0)
[2023-08-08 20:33] LABS: Alanine Aminotransferase 34 U/L (6-35); Alkaline Phosphatase 89 U/L (38-126); Anion Gap 6 mmol/L (8-16); Aspartate Amino Transferase 40 U/L (14-36); Bilirubin,Total 0.3 mg/dL (0.2-1.3); Blood Urea Nitrogen 19 mg/dL (7-17); Calcium 9.1 mg/dL (8.4-10.2); Carbon Dioxide 25 mmol/L (22-30); Chloride 103 mmol/L (98-107); Estimated CRCL calculation 39 ml/min; Estimated Glomerular Filt Rate > 60; Glucose 105 mg/dL (65-110); Sodium 134 mmol/L (137-145)
[2023-08-08 21:41] VITALS: BP 165/76; PULSE 60; RESP 15; O2SAT 95
[2023-08-08 22:20] LABS: Appearance Urine Clear (Clear); Bilirubin Urine Negative (Negative); Blood Urine Negative (Negative); Color Urine Yellow (Yellow); Glucose Urine UA Negative (Negative); Ketones Urine Negative (Negative); Leukocyte Esterase Ur Negative LEU/UL (Negative); Nitrate Urine Negative (Negative); Protein Urine Negative (Negative); Specific Grav Ur 1.016 (1.001-1.035); Urobilinogen Urine 0.2 mg/dL (<2.0); pH Urine 6.5 (5.0-9.0)
[2023-08-08] MEDS: TETANUS,DIPHTHERIA,AC PERTUSSIS ADULT (0.5 ML) BOOSTRIX IM (22:20)
[2023-08-08] MEDS: LIDOCAINE, EPINEPHRINE, TETRACAINE VISCOUS SOLN 3 ML TOPICAL (22:26)
[2023-08-08 22:34] LABS: Add Urine Microscopic? NO
[2023-08-09 00:09] VITALS: BP 150/76; PULSE 62; RESP 12; O2SAT 99
== END 2023-08-09 00:11 | disposition home or self-care (01) ==
PROVIDERS: Emergency Provider Physician Assistant
DX: S01.81XA Laceration without foreign body of other part of head, initial encounter (principal); R42 Dizziness and giddiness; Z23 Encounter for immunization; I48.91 Unspecified atrial fibrillation; K21.9 Gastro-esophageal reflux disease without esophagitis; E78.5 Hyperlipidemia, unspecified; M47.812 Spondylosis without myelopathy or radiculopathy, cervical region; I51.7 Cardiomegaly; R91.8 Other nonspecific abnormal finding of lung field; I45.9 Conduction disorder, unspecified; I49.3 Ventricular premature depolarization; W18.39XA Other fall on same level, initial encounter
CPT/HCPCS: 12011; 36415; 70450; 70486; 71046; 72125; 80053; 81003; 85025; 90471; 90715; 93005; 99284

== ENCOUNTER 2024-05-05 19:04 | Emergency (ER) | payer MEDICARE, SELFPAY ==
[2024-05-05 19:12] VITALS: BP 128/62; PULSE 72; RESP 15; TEMP 36.4; O2SAT 72
[2024-05-06 00:03] LABS: Basophils Absolute Auto 0.1 K/mm3 (0.0-0.1); Basophils Percent Auto 0.6 % (0.2-1.2); Eosinophils Absolute Auto 0.2 K/mm3 (0-0.3); Eosinophils Percent Auto 2.5 % (0-4.4); Hematocrit 30.2 % (37.0-47.0); Hemoglobin 9.3 g/dL (12.0-15.0); Immature Granulocyte Absolute 0.03 K/mm3 (0.00-0.031); Immature Granulocyte Percent A 0.3 % (0-0.5); Lymphocytes Absolute Auto 2.06 K/mm3 (0.9-3.2); Lymphocytes Percent Auto 21.7 % (18.3-44.2); Mean Corpuscular HGB Conc 30.8 g/dl (32-36); Mean Corpuscular Hemoglobin 25.1 pg (26-34); Mean Corpuscular Volume 81.4 fl (80-100); Mean Platelet Volume 9.8 fl (7.4-10.4); Monocytes Percent Auto 10.7 % (2.6-8.5); Neutrophils Absolute Auto 6.1 K/mm3 (1.3-6.7); Neutrophils Percent Auto 64.2 % (45.5-73.1); Platelet Count Result 290 k/mm3 (150-375); Red Blood Count 3.71 M/mm3 (4.2-5.4); Red Cell Distribution Width 15.5 % (11.5-14.5); White Blood Count 9.5 K/mm3 (4.5-10.0)
[2024-05-06 00:14] LABS: Prothrombin Time 13.9 Seconds (11.1-14.7)
[2024-05-06 00:15] LABS: Alanine Aminotransferase 12 U/L (6-35); Alkaline Phosphatase 52 U/L (38-126); Anion Gap 6 mmol/L (4-12); Aspartate Amino Transferase 25 U/L (14-36); Bilirubin,Total 0.5 mg/dL (0.2-1.3); Blood Urea Nitrogen 17 mg/dL (7-17); Calcium 8.8 mg/dL (8.4-10.2); Carbon Dioxide 26 mmol/L (22-30); Chloride 104 mmol/L (98-107); Estimated CRCL calculation 36 ml/min; Estimated Glomerular Filt Rate > 60; Glucose 109 mg/dL (65-110); Partial Thromboplastin Time 28.5 Seconds (22.3-36.8); Sodium 136 mmol/L (137-145)
[2024-05-06 01:47] VITALS: PULSE 69; RESP 16; O2SAT 100
--- NOTE | 2024-05-06 02:00 | ED.GENADULT ---
HPI - General Adult General Chief complaint: GI Bleed Stated complaint: colon bleed Time Seen by Provider: 05/06/24 01:32 History of Present Illness HPI narrative: Patient is an 88-year-old female who presents to the emergency department this evening complaining of 2 episodes of a bloody diarrhea. Patient admits that she started taking clindamycin this past Sunday for a dental infection/sinus infection and admits that her diarrhea started after starting the clindamycin. Admits that her stools are normal brown in color. Patient also admits that the clindamycin is given her some indigestion. She denies any blood thinner use. Admits that her last colonoscopy was May of last year and revealed no abnormalities. Patient denies any additional symptoms including any chest pain or shortness of breath, any nausea vomiting or any abdominal pain denies any urinary symptoms including dysuria or hematuria. She also denies any headaches, dizziness, blurry vision, focal weakness, numbness and tingling. No additional symptoms or concerns at this time. Related Data Home Medications Medication Instructions Recorded Confirmed dicyclomine 10 mg capsule 10 mg PO TID 02/01/21 08/21/22 diltiazem HCl 240 mg 240 mg PO DAILY 02/01/21 08/21/22 capsule,extended release 24 hr flecainide 100 mg tablet 100 mg PO BID 02/01/21 08/21/22 fluticasone furoate 100 1 inh inhalation DAILY 02/01/21 08/21/22 mcg-vilanterol 25 mcg/dose inhalation powder (Breo Ellipta) metoprolol succinate 50 mg 50 mg PO DAILY 02/01/21 08/21/22 tablet,extended release 24 hr montelukast 10 mg tablet 10 mg PO DAILY 02/01/21 08/21/22 omeprazole 40 mg capsule,delayed 40 mg PO DAILY 02/01/21 08/21/22 release pravastatin 40 mg tablet 20 mg PO DAILY 02/01/21 08/21/22 prochlorperazine maleate 10 mg 10 mg PO Q8H PRN Diarrhea 08/21/22 08/21/22 tablet (Compazine) Allergies Allergy/AdvReac Type Severity Reaction Status Date / Time castro Allergy Mild Unknown Verified 05/05/24 19:15 soy Allergy Mild Unknown Verified 05/05/24 19:15 wheat Allergy Mild Unknown Verified 05/05/24 19:15 Digitalis Glycosides Allergy Unknown Unknown Verified 05/05/24 19:15 shellfish derived Allergy Unknown Unknown Verified 05/05/24 19:15 simvastatin Allergy Unknown Unknown Verified 05/05/24 19:15 Review of Systems Review of Systems: All systems are reviewed and are negative unless stated otherwise in the HPI. [facility] Past Medical History Medical History History of atrial fibrillation History of gastroesophageal reflux (GERD) History of hyperlipidemia Social History Social History Substance use: never Exam Narrative: General: Alert, awake, afebrile, in no acute distress. HEENT: PERRL, no rhinorrhea, no post nasal drip, oropharynx clear. Neck: Trachea midline, no JVD, no lymphadenopathy. Cardiovascular: Regular rate and rhythm, no murmurs, rubs or gallops, no peripheral edema. Respiratory: Clear to auscultation bilaterally, no tachypnea, no wheezing, no rhonchi, no rubs, no respiratory distress. Abdomen: Soft, nontender, nondistended, no rebound, no guarding, no peritoneal signs. Musculoskeletal: No joint swelling or deformity, normal muscle tone. Skin: No rashes or petechia, no signs of infection. Psychiatric: Alert and oriented, normal behavior and judgment for situation. Neurological: Alert and oriented to person, place, and time. Follows all commands. No focal deficits, speech is clear and fluent. Course Vital Signs Vital signs: Vital Signs Temperature 97.6 F 05/05/24 19:12 Pulse Rate 72 05/05/24 19:12 Respiratory Rate 15 05/05/24 19:12 Blood Pressure 128/62 05/05/24 19:12 Pulse Oximetry 72 L 05/05/24 19:12 Oxygen Delivery Room Air 05/05/24 19:12 Temperature 97.6 F 05/05/24 19:12 Pulse Rate 67 05/06/24 02:15 Respiratory Rate 22 H 05/06/24 02:15 Blood Pressure 128/62 05/05/24 19:12 Pulse Oximetry 98 05/06/24 02:15 Oxygen Delivery Room Air 05/05/24 19:12 Medical Decision Making [facility] [place] Narrative Medical decision making narrative: The patient was evaluated by myself in the emergency department. History is obtained from patient who is an independent historian and physical exam was performed. External medical records were reviewed at this time. IV was established and pertinent tests were ordered. Laboratory results obtained revealing a hemoglobin of 9.3. Patient has a previous hemoglobin of 12 back in July of this year. Granddaughter who is present at bedside was able to log into [employer] at of a [facility] patient has been having her most recent care and patient does have a documented hemoglobin from March which was noted to be 9.3. Patient was informed that given her stable vital signs and stable hemoglobin, no further intervention is needed. Differential diagnosis considerations include diarrhea, dehydration, electrolyte derangements, GI bleed. Comorbidities impacting this visit include none. I have evaluated and discussed social determinants of health with the patient that could potentially impact subsequent diagnosis and treatment plans. On repeat assessment of the patient, reevaluation revealed that the patient is doing well and is in no acute distress. Patient symptoms have improved since she arrived to our emergency department. Repeat vital signs were all reviewed and noted to be stable. Differential diagnosis and treatment plan were discussed with the patient at bedside. Patient agrees with discussion and after shared medical decision making agrees with discharge. All questions were answered to the patient's satisfaction. Patient will follow up with her PCP in 3-5 days. Patient was provided with strict return precautions and instructed to return to the emergency department if any new or worsening symptoms develop. The patient was discharged in stable condition. Vital Signs Vital Signs: Vital Signs Temperature 97.6 F 05/05/24 19:12 Pulse Rate 72 05/05/24 19:12 Respiratory Rate 15 05/05/24 19:12 Blood Pressure 128/62 05/05/24 19:12 Pulse Oximetry 72 L 05/05/24 19:12 Oxygen Delivery Room Air 05/05/24 19:12 Temperature 97.6 F 05/05/24 19:12 Pulse Rate 67 05/06/24 02:15 Respiratory Rate 22 H 05/06/24 02:15 Blood Pressure 128/62 05/05/24 19:12 Pulse Oximetry 98 05/06/24 02:15 Oxygen Delivery Room Air 05/05/24 19:12 Lab Data 05/05/24 23:52 05/05/24 23:52 Labs: Lab Results 11/25/24 Range/Units 23:52 WBC 9.5 (4.5-10.0) K/mm3 RBC 3.71 L (4.2-5.4) M/mm3 Hgb 9.3 L D (12.0-15.0) g/dL Hct 30.2 L (37.0-47.0) % MCV 81.4 (80-100) fl MCH 25.1 L (26-34) pg MCHC 30.8 L (32-36) g/dl RDW 15.5 H (11.5-14.5) % Plt Count 290 (150-375) k/mm3 MPV 9.8 (7.4-10.4) fl Immature Gran % (Auto) 0.3 (0-0.5) % Neut % (Auto) 64.2 (45.5-73.1) % Lymph % (Auto) 21.7 (18.3-44.2) % [place] % (Auto) 10.7 H (2.6-8.5) % Eos % (Auto) 2.5 (0-4.4) % Baso % (Auto) 0.6 (0.2-1.2) % Lymph # (Auto) 2.06 (0.9-3.2) K/mm3 [place] # (Auto) 1.0 H (0.1-0.6) K/mm3 Eos # (Auto) 0.2 (0-0.3) K/mm3 Baso # (Auto) 0.1 (0.0-0.1) K/mm3 Abs Immat Gran (auto) 0.03 (0.00-0.031) K/mm3 Absolute Neuts (auto) 6.1 (1.3-6.7) K/mm3 Absolute Nucleated RBC 0.000 (0.0-0.012) K/mm3 Nucleated RBC % 0.0 (0.0-0.2) % PT 13.9 (11.1-14.7) Seconds INR 1.0 APTT 28.5 (22.3-36.8) Seconds Sodium 136 L (137-145) mmol/L Potassium 4.0 (3.4-5.0) mmol/L Chloride 104 (98-107) mmol/L Carbon Dioxide 26 (22-30) mmol/L Anion Gap 6 (4-12) mmol/L BUN 17 (7-17) mg/dL Creatinine 0.70 (0.7-1.0) mg/dL Estim Creat Clear Calc 36 ml/min Estimated GFR > 60 (59 - ) Glucose 109 (65-110) mg/dL Calcium 8.8 (8.4-10.2) mg/dL Total Bilirubin 0.5 (0.2-1.3) mg/dL AST 25 (14-36) U/L ALT 12 (6-35) U/L Alkaline Phosphatase 52 (38-126) U/L Total Protein 7.0 (6.3-8.2) g/dL Albumin 4.0 (3.5-5.1) g/dL Blood Type O Positive Antibody Screen Negative Discharge Plan Discharge Clinical Impression: Diarrhea, Hematochezia Patient Disposition: Home, Self-Care Condition: Stable Instructions: Antibiotic Form, Rectal Bleeding (ED), Acute Diarrhea (ED) Additional Instructions: Please follow-up with your primary care physician within the next 3-5 days. Return to the emergency department if any new or worsening symptoms develop. Take the prescribed Zofran as needed for nausea/indigestion along with your Protonix. Prescriptions: New ondansetron 4 mg tablet,disintegrating 4 mg PO Q8H PRN (Reason: nausea and vomiting) Qty: 12 0RF No Action dicyclomine 10 mg capsule 10 mg PO TID diltiazem HCl 240 mg capsule,extended release 24hr 240 mg PO DAILY flecainide 100 mg tablet 100 mg PO BID pravastatin 40 mg tablet 20 mg PO DAILY omeprazole 40 mg capsule,delayed release(DR/EC) 40 mg PO DAILY metoprolol succinate 50 mg tablet extended release 24 hr 50 mg PO DAILY fluticasone furoate-vilanterol [Breo Ellipta] 100-25 mcg/dose blister with device 1 inh INHALATION DAILY montelukast 10 mg tablet 10 mg PO DAILY prochlorperazine maleate [Compazine] 10 mg Tablet 10 mg PO Q8H PRN (Reason: Diarrhea) tramadol 50 mg tablet 50 mg PO Q4H PRN (Reason: pain) Qty: 14 0RF Follow-up/Referrals: Mykel Saldivar MD [Physician] - 3 Days UNKNOWN,DOCTOR [Primary Care Provider] - Time of Disposition: 02:02
[2024-05-06 02:05] VITALS: PULSE 68; RESP 17; O2SAT 98
[2024-05-06 02:15] VITALS: PULSE 67; RESP 22; O2SAT 98
== END 2024-05-06 02:35 | disposition home or self-care (01) ==
PROVIDERS: Emergency Provider Emergency Medicine
DX: R19.7 Diarrhea, unspecified (principal); K92.1 Melena; I48.91 Unspecified atrial fibrillation; K21.9 Gastro-esophageal reflux disease without esophagitis; E78.5 Hyperlipidemia, unspecified
CPT/HCPCS: 36415; 80053; 85025; 85610; 85730; 86850; 86900; 86901; 99283